=== PATIENT | female | born 1960 | race Caucasian/White ===

== ENCOUNTER 2017-07-12 10:11 | Emergency (ER) | payer OTHER ==
[~2017-07-12] VITALS: Ht 157.5 cm; Wt 107.1 kg
[2017-07-12] MEDS ORDERED: FIORICET 50-301 EAC1 PO (15:09)
[2017-07-12] MEDS ORDERED: MEDROL DOSEPAK4 MG PO (15:09)
[2017-07-12] MEDS ORDERED: SKELAXIN800 MG PO (15:09)
[2017-07-12 15:19] VITALS: BP 168/127
== END 2017-07-12 15:19 | disposition home or self-care (01) ==
LOC: EME 10:11
DX: S06.0X0A Concussion without loss of consciousness, initial encounter (principal); S16.1XXA Strain of muscle, fascia and tendon at neck level, initial encounter; M48.02 Spinal stenosis, cervical region; W19.XXXA Unspecified fall, initial encounter; Y99.0 Civilian activity done for income or pay; Z88.2 Allergy status to sulfonamides
CPT/HCPCS: 70450; 72125; 99281; 99282